=== PATIENT | male | born 1985 | race Caucasian/White ===

== ENCOUNTER 2017-08-05 12:27 | Day surgery (SDC) | payer OTHER ==
[~2017-08-05] VITALS: Ht 180.3 cm; Wt 123.8 kg
--- NOTE | 2017-08-05 12:42 | ER Report ---
History and Physical Time Seen By MD: 12:41 Hx. of Stated Complaint: pt reports gi symptoms for 1 month. pt reports pain in umbilical area HPI/ROS CHIEF COMPLAINT: Abdominal pain HISTORY OF PRESENT ILLNESS: This is a 32-year-old male who presents to the emergency department for abdominal pain. Patient states that over the last month he's had intermittent abdominal pain then this morning when he woke up he had constant lower abdominal pain on both sides. Patient also states he's had some urinary difficult ease over the last several days as well, he states that he feels like he has to urinate but is unable to. Patient also states that he's had a few episodes where his urine was very dark in color but he doesn't appreciate any bright red blood. Patient denies diarrhea he states today he has had no bowel movement which is unusual for him. No fevers or chills, no chest pain or shortness of breath, no headaches or rashes. REVIEW OF SYSTEMS: Constitutional: No fever, no chills. Eyes: No discharge. ENT: No sore throat. Cardiovascular: No chest pain, no palpitations. Respiratory: No cough, no shortness of breath. Gastrointestinal: As above. Genitourinary: As above. Musculoskeletal: No back pain. Skin: No rashes. Neurological: No headache. Allergies: Coded Allergies: No Known Drug Allergies (Unverified , 08/05/17) Home Meds Reported Medications Hydrocodone Bit/Acetaminophen (NORCO 7.5-325 TABLET) 1 Each Tablet, 1 EACH PO Q4 -6H Y for PAIN, #30 08/05/17 Cephalexin (KEFLEX) 500 Mg Capsule, 500 MG PO QID, #40 CAP 08/05/17 Phenazopyridine Hcl (PHENAZOPYRIDINE HCL) 200 Mg Tablet, 200 MG PO TID Y for PAIN, #30 TAB 08/05/17 Ibuprofen (IBUPROFEN) 800 Mg Tablet, 1 TAB PO TID Y for PAIN, #50 TAB 08/05/17 Famotidine (PEPCID) 20 Mg Tablet, 20 MG PO BID, #20 TAB 08/05/17 Past Medical/Surgical History Patient has a past medical and surgical history of wears contacts, wisdom teeth extraction. Reviewed Nurses Notes: Yes Constitutional Vital Sign - Last 24 Hours 08/05/17 08/05/17 08/05/17 08/05/17 12:30 12:33 12:37 12:47 Temp 97.5 Pulse 71 68 74 Resp 16 B/P (MAP) 144/100 144/101 (115) Pulse Ox 95 94 95 O2 Delivery Room Air 08/05/17 08/05/17 08/05/17 08/05/17 13:30 14:00 14:30 15:00 B/P (MAP) 156/111 (126) 142/98 (113) 148/87 (107) 147/86 (106) 08/05/17 08/05/17 08/05/17 08/05/17 15:23 16:05 17:30 17:45 Temp 98.6 Pulse 68 65 106 90 Resp 16 12 20 12 B/P (MAP) 147/86 (106) 132/92 (105) Pulse Ox 93 94 93 O2 Delivery Room Air Nasal Cannula O2 Flow Rate 1.0 08/05/17 08/05/17 08/05/17 08/05/17 18:00 18:15 18:30 18:45 Temp 98.3 Pulse 92 88 83 100 Resp 16 16 16 12 B/P (MAP) 130/97 (108) Pulse Ox 92 94 95 O2 Delivery Nasal Cannula O2 Flow Rate 2.0 08/05/17 08/05/17 08/05/17 08/05/17 18:46 18:55 19:30 19:37 Temp 98.1 Pulse 97 97 103 89 Resp 12 12 12 16 B/P (MAP) 143/103 (116) 134/115 (121) 143/103 (116) 128/108 (115) O2 Delivery Nasal Cannula Nasal Cannula Nasal Cannula Nasal Cannula O2 Flow Rate 2.0 2.0 2.0 2.0 Intake and Output 08/05/17 08/05/17 08/06/17 15:00 23:00 07:00 Intake Total 2710 ml Output Total 150 ml Balance 2560 ml Physical Exam General Appearance: The patient is alert, has no immediate need for airway protection and no signs of toxicity. Eyes: Pupils equal and round no pallor or injection. ENT, Mouth: Mucous membranes are moist. Respiratory: There are no retractions, lungs are clear to auscultation. Cardiovascular: Regular rate and rhythm, no murmurs, clicks or rubs. Gastrointestinal: Abdomen is moderately firm and tender to bilateral lower quadrants, no masses, absent bowel sounds in the bilateral lower quadrants and the left upper quadrant and hypoactive to the right upper quadrant. Genitourinary: Very faint cremasteric reflex. When the patient is coughing and bearing on I can feel something in the left inguinal canal. No appreciable prostate hypertrophy. Neurological: Alert and oriented 4. Moving all extremities. Following all commands. No focal neuro deficits. Skin: Warm and dry, no rashes. Musculoskeletal: Neck is supple non tender. Extremities are nontender, nonswollen and have full range of motion. DIFFERENTIAL DIAGNOSIS: After history and physical exam differential diagnosis was considered for abdominal pain including but not limited to appendicitis, cholecystitis, gastritis and urinary tract infection.urinary retention including but not limited to medication side effect, neurologic causes, outflow obstruction including prostatic hypertrophy, and blood. Medical Decision Making Data Points Result Diagram: 08/05/17 1303 08/05/17 1303 Laboratory Hematology Test 08/05/17 12:30 08/05/17 13:03 Urine Color Yellow Urine Clarity Cloudy Urine pH 5.0 pH (4.8-9.5) Urine Specific [place] 1.025 Urine Protein 30 mg/dL (NEGATIVE) Urine Glucose (UA) Negative mg/dL (NEGATIVE) Urine Ketones Negative mg/dL (NEGATIVE) Urine Blood Large (NEGATIVE) Urine Nitrite Negative (NEGATIVE) Urine Bilirubin Negative (NEGATIVE) Urine Urobilinogen 2.0 mg/dL (0.2-1.9) Urine Leukocyte Esterase Negative (NEGATIVE) Urine RBC 551 /HPF (0-2/HPF) Urine WBC 10 /HPF (0-5/HPF) Urine Squamous Epithelial Cells None /LPF (</=FEW) Urine Calcium Oxalate Crystals Many /HPF (NONE) Urine Bacteria Negative /HPF (NONE-FEW) Urine Mucus Few /HPF (NONE-FEW) Urine Yeast (Budding) Few /HPF Red Blood Count 5.85 M/uL (4.00-5.60) Mean Corpuscular Volume 83.5 fL (80.0-96.0) Mean Corpuscular Hemoglobin 28.4 pg (26.0-33.0) Mean Corpuscular Hemoglobin Concent 34.0 g/dL (32.0-36.0) Red Cell Distribution Width 13.7 % (11.5-14.5) Mean Platelet Volume 8.0 fL (7.2-11.1) Neutrophils (%) (Auto) 74.6 % (39.4-72.5) Lymphocytes (%) (Auto) 13.2 % (17.6-49.6) Monocytes (%) (Auto) 7.9 % (4.1-12.4) Eosinophils (%) (Auto) 3.0 % (0.4-6.7) Basophils (%) (Auto) 1.3 % (0.3-1.4) Nucleated RBC Relative Count (auto) 0.0 /100WBC Neutrophils # (Auto) 6.5 K/uL (2.0-7.4) Lymphocytes # (Auto) 1.1 K/uL (1.3-3.6) Monocytes # (Auto) 0.7 K/uL (0.3-1.0) Eosinophils # (Auto) 0.3 K/uL (0.0-0.5) Basophils # (Auto) 0.1 K/uL (0.0-0.1) Nucleated RBC Absolute Count (auto) 0.00 K/uL Sodium Level 137 mmol/L (137-145) Potassium Level 3.8 mmol/L (3.5-5.0) Chloride Level 99 mmol/L (98-107) Carbon Dioxide Level 28 mmol/L (22-30) Blood Urea Nitrogen 11 mg/dl (9-21) Creatinine 1.20 mg/dl (0.66-1.25) Glomerular Filtration Rate Calc > 60.0 Random Glucose 96 mg/dl (75-110) Calcium Level 9.1 mg/dl (8.4-10.2) Total Bilirubin 0.5 mg/dl (0.2-1.3) Aspartate Amino Transf (AST/SGOT) 36 U/L (0-35) Alanine Aminotransferase (ALT/SGPT) 74 U/L (0-56) Alkaline Phosphatase 90 U/L (0-126) Total Protein 8.1 gm/dl (6.3-8.2) Albumin 4.4 g/dl (3.5-5.0) Chemistry Test 08/05/17 12:30 08/05/17 13:03 Urine Color Yellow Urine Clarity Cloudy Urine pH 5.0 pH (4.8-9.5) Urine Specific [place] 1.025 Urine Protein 30 mg/dL (NEGATIVE) Urine Glucose (UA) Negative mg/dL (NEGATIVE) Urine Ketones Negative mg/dL (NEGATIVE) Urine Blood Large (NEGATIVE) Urine Nitrite Negative (NEGATIVE) Urine Bilirubin Negative (NEGATIVE) Urine Urobilinogen 2.0 mg/dL (0.2-1.9) Urine Leukocyte Esterase Negative (NEGATIVE) Urine RBC 551 /HPF (0-2/HPF) Urine WBC 10 /HPF (0-5/HPF) Urine Squamous Epithelial Cells None /LPF (</=FEW) Urine Calcium Oxalate Crystals Many /HPF (NONE) Urine Bacteria Negative /HPF (NONE-FEW) Urine Mucus Few /HPF (NONE-FEW) Urine Yeast (Budding) Few /HPF White Blood Count 8.7 k/uL (4.5-11.0) Red Blood Count 5.85 M/uL (4.00-5.60) Hemoglobin 16.6 g/dL (14.0-18.0) Hematocrit 48.9 % (42.0-52.0) Mean Corpuscular Volume 83.5 fL (80.0-96.0) Mean Corpuscular Hemoglobin 28.4 pg (26.0-33.0) Mean Corpuscular Hemoglobin Concent 34.0 g/dL (32.0-36.0) Red Cell Distribution Width 13.7 % (11.5-14.5) Platelet Count 274 K/uL (150-450) Mean Platelet Volume 8.0 fL (7.2-11.1) Neutrophils (%) (Auto) 74.6 % (39.4-72.5) Lymphocytes (%) (Auto) 13.2 % (17.6-49.6) Monocytes (%) (Auto) 7.9 % (4.1-12.4) Eosinophils (%) (Auto) 3.0 % (0.4-6.7) Basophils (%) (Auto) 1.3 % (0.3-1.4) Nucleated RBC Relative Count (auto) 0.0 /100WBC Neutrophils # (Auto) 6.5 K/uL (2.0-7.4) Lymphocytes # (Auto) 1.1 K/uL (1.3-3.6) Monocytes # (Auto) 0.7 K/uL (0.3-1.0) Eosinophils # (Auto) 0.3 K/uL (0.0-0.5) Basophils # (Auto) 0.1 K/uL (0.0-0.1) Nucleated RBC Absolute Count (auto) 0.00 K/uL Glomerular Filtration Rate Calc > 60.0 Calcium Level 9.1 mg/dl (8.4-10.2) Total Bilirubin 0.5 mg/dl (0.2-1.3) Aspartate Amino Transf (AST/SGOT) 36 U/L (0-35) Alanine Aminotransferase (ALT/SGPT) 74 U/L (0-56) Alkaline Phosphatase 90 U/L (0-126) Total Protein 8.1 gm/dl (6.3-8.2) Albumin 4.4 g/dl (3.5-5.0) Urinalysis Test 08/05/17 12:30 Urine Color Yellow Urine Clarity Cloudy Urine pH 5.0 pH (4.8-9.5) Urine Specific [place] 1.025 Urine Protein 30 mg/dL (NEGATIVE) Urine Glucose (UA) Negative mg/dL (NEGATIVE) Urine Ketones Negative mg/dL (NEGATIVE) Urine Blood Large (NEGATIVE) Urine Nitrite Negative (NEGATIVE) Urine Bilirubin Negative (NEGATIVE) Urine Urobilinogen 2.0 mg/dL (0.2-1.9) Urine Leukocyte Esterase Negative (NEGATIVE) Urine RBC 551 /HPF (0-2/HPF) Urine WBC 10 /HPF (0-5/HPF) Urine Squamous Epithelial Cells None /LPF (</=FEW) Urine Calcium Oxalate Crystals Many /HPF (NONE) Urine Bacteria Negative /HPF (NONE-FEW) Urine Mucus Few /HPF (NONE-FEW) Urine Yeast (Budding) Few /HPF EKG/Imaging Imaging ABDOMEN/PELVIS WITH CONTRAST Additional pertinent History: Bilateral lower quadrant pain TECHNIQUE: Spiral scan was through the abdomen and pelvis during injection of nonionic iodinated intravenous contrast. Contrast: 75 mL of IV Isovue-370. One of the following dose optimization techniques was utilized in the performance of this exam: Automated exposure control; adjustment of the mA and/ or kV according to the patient's size; or use of an iterative reconstruction technique. Specific details can be referenced in the facility's radiology CT exam operational policy. COMPARISON STUDIES: none. FINDINGS: Liver / biliary: No liver pathology. Gallbladder is normal Pancreas: negative Spleen: negative Adrenal glands: negative Kidneys / retroperitoneum: Edematous left kidney with a dilated collecting system and ureter down to a obstructing 4x5 mm stone in the distal left ureter ( image 141 series 2) Pelvic structures: Prostate is normal. Bladder is unremarkable Bowel / peritoneum / mesenteries: negative Vessels: negative Musculoskeletal / Body wall: Small bilateral inguinal herniations of peritoneal fat. Lymph node assessment: negative Lower chest: negative IMPRESSION: 1. 4 x 5 mm obstructing distal left ureteral stone approximately 3 cm from the vesicoureteral junction. Report Dictated By: Clarke Rodriguez MD at 08/05/2017 2:16 PM Report E-Signed By: Clarke Rodriguez MD at 08/05/2017 2:22 PM WSN:[id number] ED Course/Re-evaluation Clinical Indication for ER IV: IV Access ED Course The patient was admitted to a room. A history physical were obtained. Differential diagnoses were considered. IV was started. 4 mg IV Zofran, 2 mg IV morphine 2. A CBC, CMP were obtained. Lab studies unremarkable. A UA was obtained showing large blood,Urine [place], calcium oxalate crystals, 10 urine wbc' s, the urine was sent for culture. A CT of the abdomen and pelvis showing a left -sided obstructive kidney stone with dilation of the collecting duct. I did review these results with the patient, there was an incidental finding on the CT as well, bilateral inguinal herniation of peritoneal fat. I did contact Dr. Aquino as noted below, Dr. Aquino has agreed to take the patient to surgery to remove the stone. Patient is in agreement with this plan of care. Patient had no other questions or concerns at this time and was admitted to the outpatient surgery center. 08/05/2017 2:52:[address] Aquino has accepted the patient into his services and will be admitted to the hospital and taken to surgery the patient is in agreement with this plan of care. 08/05/2017 3:00:[address] Aquino again and Dr. Aquino said he will go ahead and take the patient to surgery around 4 PM today he shouldn't will be admitted to the outpatient surgery center. The patient has been nothing by mouth since 9 AM this morning. 08/05/2017 3:16:[address] Laird regarding the incidental finding of small bilateral inguinal hernias of peritoneal fat and Dr. Powell suggested having the patient follow-up in his office after he has surgery with Dr. Aquino. I did update the patient's gave him Dr. Laird's information and instructed him to call. Decision to Disposition Date: Aug 05, 2017 Decision to Disposition Time: 14:58 Depart Departure Latest Vital Signs Vital Signs Date Time Temp Pulse Resp B/P (MAP) Pulse Ox O2 Delivery O2 Flow Rate FiO2 08/05/17 19:37 89 16 128/108 (115) Nasal Cannula 2.0 08/05/17 18:46 98.1 08/05/17 18:30 95 Impression: Primary Impression: Ureteral obstruction, left Condition: Improved Disposition: ADMIT FROM ER TO OR BLAYNE HEATH Aug 05, 2017 12:42
[2017-08-05 13:20] LABS: PLATELET COUNT, AUTOMATED 274 K/uL (150-450)
[2017-08-05] MEDS ORDERED: IOPAMIDOL 76% 75 ML INFUS BTL 75 ML ONE (13:27)
[2017-08-05] MEDS ORDERED: MORPHINE 2 MG/ML SYR IVP ONE ×2 (14:05→14:55)
[2017-08-05] MEDS ORDERED: ONDANSETRON 4 MG/2 ML VIAL IVP ONE (14:05)
--- NOTE | 2017-08-05 14:27 | RADIOLOGY IMAGING REPORT ---
FACILITY: [facility] PATIENT NAME: Chyna Hobbs : 1985 MR: [id number] V: [id number] EXAM DATE: ORDERING PHYSICIAN: BLAYNE HEATH TECHNOLOGIST: Location: Patient: Chyna Hobbs : 1985 Visit/Account:[id number] Date of Sevice: 08/05/2017 ABDOMEN/PELVIS WITH CONTRAST Additional pertinent History: Bilateral lower quadrant pain TECHNIQUE: Spiral scan was through the abdomen and pelvis during injection of nonionic iodinated in travenous contrast. Contrast: 75 mL of IV Isovue-370. One of the following dose optimization techniques was utilized in the performance of this exam: Autom ated exposure control; adjustment of the mA and/or kV according to the patient's size; or use of an i terative reconstruction technique. Specific details can be referenced in the facility's radiology C T exam operational policy. COMPARISON STUDIES: none. FINDINGS: Liver / biliary: No liver pathology. Gallbladder is normal Pancreas: negative Spleen: negative Adrenal glands: negative Kidneys / retroperitoneum: Edematous left kidney with a dilated collecting system and ureter down to a obstructing 4x5 mm stone in the distal left ureter (image 141 series 2) Pelvic structures: Prostate is normal. Bladder is unremarkable Bowel / peritoneum / mesenteries: negative Vessels: negative Musculoskeletal / Body wall: Small bilateral inguinal herniations of peritoneal fat. Lymph node assessment: negative Lower chest: negative IMPRESSION: 1. 4 x 5 mm obstructing distal left ureteral stone approximately 3 cm from the vesicoureteral junctio n. Report Dictated By: Clarke Rodriguez MD at 08/05/2017 2:16 PM Report E-Signed By: Clarke Rodriguez MD at 08/05/2017 2:22 PM WSN:[id number]
[2017-08-05] MEDS ORDERED: IOPAMIDOL-200 50 ML VIAL IS ONE (15:29)
[2017-08-05] MEDS ORDERED: NORMOSOL R SOLN(*) 1000 ML BAG 1,000 ML IV PRN (15:40)
[2017-08-05] MEDS ORDERED: FAMOTIDINE 20 MG/50 ML PREMIX IVPB ONE (15:40)
[2017-08-05] MEDS ORDERED: MIDAZOLAM 2 MG/2 ML VIAL IVP PRN (15:40)
[2017-08-05] MEDS ORDERED: SUCCINYLCHOL CHL 100MG/5ML SYR IVP ONE (16:00)
[2017-08-05 16:05] VITALS: BP 132/92
[2017-08-05] MEDS ORDERED: cefTRIAXone(*) 1 GM VIAL 1 GM in NS(*) 0.9% 100 ML ADDVANT BAG 100 ML IVPB ONE (16:10)
[2017-08-05] MEDS ORDERED: WATER FOR IRRIG,STERILE 3000ML IR ONE (16:20)
[2017-08-05] MEDS ORDERED: PROPOFOL EMUL(*) 10MG/ML 20 ML 40 ML ONE (16:30)
[2017-08-05] MEDS ORDERED: ONDANSETRON 4 MG/2 ML VIAL ONE (16:30)
[2017-08-05] MEDS ORDERED: LIDOCAINE MPF 1% 5 ML VIAL ONE (16:30)
[2017-08-05] MEDS ORDERED: DEXAMETHASONE SOD PHOS 10MG/ML ONE (16:30)
[2017-08-05] MEDS ORDERED: ROCURONIUM BROM 10 MG/ML 10 ML ONE (16:46)
[2017-08-05] MEDS ORDERED: SUGAMMADEX SOD 500 MG/5 ML SDV ONE (17:03)
--- NOTE | 2017-08-05 17:28 | RADIOLOGY IMAGING REPORT ---
FACILITY: [facility] PATIENT NAME: Chyna Hobbs : 1985 MR: [id number] V: [id number] EXAM DATE: ORDERING PHYSICIAN: ROBIN PINTO TECHNOLOGIST: Location: [facility] [place] Patient: Chyna Hobbs : 1985 Visit/Account:[id number] Date of Sevice: 08/05/2017 Technique: C-ARM FLUORO 1 HR HISTORY: HEMATURIA Comparison studies: None FINDINGS: 2 operative fluoroscopic radiographs were obtained of the pelvis and left hemiabdomen. Cont rast is noted within the urinary bladder and left-sided collecting system. Present is incomplete visu alization of a left-sided ureteral stent. Fluoroscopy: 0.04 minutes IMPRESSION: 1. Intraoperative fluoroscopic radiographs as described above. Please see operative report for furth er details. Report Dictated By: Brady Bustos DO at 08/05/2017 5:24 PM Report E-Signed By: Brady Bustos DO at 08/05/2017 5:26 PM WSN:[id number]
[2017-08-05] MEDS ORDERED: FAMO20TA28 PO (17:42)
[2017-08-05] MEDS ORDERED: IBUP800T37 PO (17:43)
[2017-08-05] MEDS ORDERED: PHEN200T32 PO (17:43)
[2017-08-05] MEDS ORDERED: CEPH-13 PO (17:46)
[2017-08-05] MEDS ORDERED: HYDR-4308 PO (17:48)
[2017-08-05 18:45] VITALS: BP 130/97
[2017-08-05 18:46] VITALS: BP 143/103
[2017-08-05 18:55] VITALS: BP 134/115
[2017-08-05 19:30] VITALS: BP 143/103
[2017-08-05 19:37] VITALS: BP 128/108
--- NOTE | 2017-08-05 22:19 | OPERATIVE REPORT 1 ---
EVENT DATE: August 05, 2017 SURGEON: Rodolfo Aquino MD ANESTHESIOLOGIST: Rodolfo Turk MD ANESTHESIA: General. PREOPERATIVE DIAGNOSIS Left ureterolithiasis with associated ureterorenal colic, nausea, and vomiting. POSTOPERATIVE DIAGNOSIS Left ureterolithiasis with associated ureterorenal colic, nausea, and vomiting. PROCEDURES PERFORMED 1. Cystourethroscopy. 2. Placement of left ureteral stent. 3. Manipulation of left ureteral stone. DESCRIPTION OF PROCEDURE Under general anesthetic, the patient was prepped and draped in the extended lithotomy position. The 21 panendoscope was admitted through the urethra to the bladder. The urethra was normal. The prostate showed trilobar hyperplasia with obstruction. The bladder showed 3+ trabeculation. Trigone and ureteral orifices were normal. No bloody efflux from either orifice. A 10 cone-tipped catheter was passed up the left ureter approximately 3 to 4 cm , and the obstructive stone was encountered and was freed from its attachments. The access catheter was placed, a guidewire 0.038, and then the 6-Icelandic x 26 cm Percuflex Plus. There was a hydronephrotic drip of bloody, christy urine. X-ray confirmed satisfactory position in the left kidney. The bladder was drained. The patient tolerated the procedure satisfactorily and returned to the recovery room in satisfactory condition. This is a 32-year-old white male complaining of acute left ureterorenal colic secondary to a left ureteral stone measured at approximately 4 to 5 mm, but clinically larger in my opinion. Options were discussed with the patient pretreatment as well as his mother-in- law who was present. The patient opted for further evaluation and therapy. See operative note for details. Plan followup this coming Friday with stent removal, ureterorenoscopy, and probable laser lithotripsy and extraction of the left renal stone. The patient will be discharged home on Keflex, Pepcid, Motrin, Pyridium, and [place] therapy in addition to his usual medication. The patient is to strain all of his urine. He is sent home with strainers. He was given a copy of instructions and expectations from the indwelling left ureteral stent as to urgency and frequency of urination, tenesmus, and bladder cramping. The patient seemed to understand. [facility]
== END 2017-08-05 18:45 | disposition home or self-care (01) ==
LOC: ER 12:34 → OR 15:15 → ER 15:24 → OR 18:45
DX: N13.5 Crossing vessel and stricture of ureter without hydronephrosis (principal)
CPT/HCPCS: 52330; 52332; 74177; 76000; 81001; 85025; 87088; 96374; 96375; 96376; 99285; C1758; C1894; C2617; J0330; J0696; J1100; J2001; J2250; J2270; J2405; J2704; J3490; J7050; Q9966; Q9967; 82040; 82247; 82310; 82374; 82435; 82565; 82947; 84075; 84132; 84155; 84295; 84450; 84460; 84520

== ENCOUNTER 2017-08-11 03:21 | Day surgery (SDC) | payer OTHER ==
[~2017-08-11] VITALS: Ht 182.9 cm; Wt 124.7 kg
[~2017-08-11 03:21] MED LIST: CEPH-13 PO; FAMO20TA28 PO; HYDR-4308 PO; IBUP800T37 PO; PHEN200T32 PO
[2017-08-11] MEDS ORDERED: ceFAZolin(*) 2GM/D5W 50ML 50 ML IVPB ONE ×2 (05:30→08:45)
[2017-08-11 08:22] VITALS: BP 132/101
[2017-08-11] MEDS ORDERED: LIDOCAINE/SOD BICARB 8.4% SYR ID ONE (08:45)
[2017-08-11] MEDS ORDERED: MIDAZOLAM 2 MG/2 ML VIAL IVP PRN (08:45)
[2017-08-11] MEDS ORDERED: NORMOSOL R SOLN(*) 1000 ML BAG 1,000 ML IV PRN (08:45)
[2017-08-11] MEDS ORDERED: DEXAMETHASONE SOD PHOS 10MG/ML ONE (08:57)
[2017-08-11] MEDS ORDERED: ONDANSETRON 4 MG/2 ML VIAL ONE (08:57)
[2017-08-11] MEDS ORDERED: LIDOCAINE MPF 1% 5 ML VIAL ONE (08:57)
[2017-08-11] MEDS ORDERED: PROPOFOL EMUL(*) 10MG/ML 20 ML 40 ML ONE (08:57)
[2017-08-11] MEDS ORDERED: fentaNYL CITR 250 MCG/5 ML AMP ONE (08:58)
[2017-08-11] MEDS ORDERED: KETOROLAC 30 MG/ML VIAL ONE (10:00)
[2017-08-11 11:05] VITALS: BP 139/97
[2017-08-11 11:17] VITALS: BP 122/87
[2017-08-11 11:18] VITALS: BP 116/86
--- NOTE | 2017-08-11 11:24 | RADIOLOGY IMAGING REPORT ---
FACILITY: [facility] [place] PATIENT NAME: Chyna Hobbs : 1985 MR: [id number] V: [id number] EXAM DATE: ORDERING PHYSICIAN: ROBIN PINTO TECHNOLOGIST: Location: [facility] Patient: Chyna Hobbs : 1985 Visit/Account:[id number] Date of Sevice: 08/11/2017 Exam type: C-ARM FLUORO 1 HR History: STONES Comparison: August 05, 2017. Findings: A single intraoperative fluoroscopic view of the abdomen and pelvis was submitted. The total fluoros copy time was two seconds. The fluoroscopy dose was 1.43 mGray. There is a left ureteral stent in place. No calcifications are seen along the course of the stent IMPRESSION: 1. As above Report Dictated By: Jonelle Baca MD at 08/11/2017 11:17 AM Report E-Signed By: Jonelle Baca MD at 08/11/2017 11:19 AM WSN:[email or web address]
--- NOTE | 2017-08-11 11:56 | OPERATIVE REPORT 1 ---
EVENT DATE: August 11, 2017 SURGEON: Rodolfo Aquino MD ANESTHESIOLOGIST: Eddie James MD ANESTHESIA: General PREOPERATIVE DIAGNOSES 1. Left ureterolithiasis. 2. Status postop left ureteral stent placement. POSTOPERATIVE DIAGNOSIS 1. Left ureterolithiasis. 2. Status postop left ureteral stent placement. PROCEDURE PERFORMED 1. Cystourethroscopy. 2. Removal of left ureteral stent. 3. Placement of left ureteral guide wire, 0.038 flexible. 4. Left ureterorenoscopy. 5. Fragmentation of left ureteral stone. 6. Extraction of four stones from the left ureter. DESCRIPTION OF PROCEDURE Under general anesthetic, the patient was prepped and draped in the extended lithotomy position. The 21 panendoscope admitted through the urethra into the bladder. No stones were visible in the bladder. The left ureteral stent was removed from the left ureter. The 0.038 guide wire, flexible tip, was passed up the left collecting system. The ureterorenoscope was introduced and passed up the left ureter. The stone was visualized. The stone fragmented over the tip of the scope into four pieces. The stones were extracted x 4 from the left ureter. Ureterorenoscopy, ascending and descending, revealed no other urolithiasis. The ureterorenoscope was removed. The ureteral guidewire was removed. A repeat cystourethroscopy showed no other stones in the bladder. The bladder was drained. The cystoscope was removed. The patient tolerated the procedures satisfactorily and returned to the recovery room in satisfactory condition. INDICATION FOR PROCEDURE This is a 32-year-old white male complaining of left ureterolithiasis approximately one week ago. He had left ureteral stent placed at that time. Patient was in followup for repeat evaluation and therapy. That has been accomplished. See operative note for details. DISCHARGE INSTRUCTIONS Patient will be ready for discharge home when alert and functional. Patient is to force fluids, 12 glasses of water per day. Activities are as tolerated. Copy of instructions were given to the patient. He is to continue his usual medications. Patient was given a dose of Toradol in the recovery room. Patient to finish his Keflex, Pepcid, [place] therapy as needed. Plan followup on September 23, 2017 for his stone analysis. [facility]
--- NOTE | 2017-08-11 12:09 | RADIOLOGY IMAGING REPORT ---
FACILITY: [facility] PATIENT NAME: Chyna Hobbs : 1985 MR: [id number] V: [id number] EXAM DATE: ORDERING PHYSICIAN: ROBIN PINTO TECHNOLOGIST: Location: [facility] Patient: Chyna Hobbs : 1985 Visit/Account:[id number] Date of Sevice: 08/11/2017 Exam type: TOMOGRAPHY AND KUB W/CASSETTE History: ESWL Comparison: CT August 05, 2017. Findings: There is a left ureteral stent in place. There is an approximate 2 to 3 mm calcification projecting immediately adjacent to the distal portion of the left ureteral stent in the mid pelvis. No calcific ations are seen projecting over the renal shadows. IMPRESSION: 1. There is an approximate 2 to 3 mm calcification projecting immediately adjacent to the distal por tion of the left ureteral stent in the mid pelvis. This could be related to the previously noted dis pilar left ureteral calculus Report Dictated By: Jonelle Baca MD at 08/11/2017 9:57 AM Report E-Signed By: Jonelle Baca MD at 08/11/2017 12:03 PM WSN:[id number]
== END 2017-08-11 11:05 | disposition home or self-care (01) ==
LOC: OR 03:21
DX: N20.1 Calculus of ureter (principal)
CPT/HCPCS: 52352; 74018; 76000; 76100; 82365; 88300; C1769; J1100; J1885; J2001; J2250; J2405; J2704; J3010; J0690

== ENCOUNTER → 2017-10-29 | Outpatient (CLI) | payer OTHER ==
--- NOTE | 2017-10-29 16:13 | RADIOLOGY IMAGING REPORT ---
FACILITY: [facility] - [place] PATIENT NAME: Chyna Hobbs : 1985 MR: [id number] V: [id number] EXAM DATE: ORDERING PHYSICIAN: ROBIN PINTO TECHNOLOGIST: Location: [facility] [place] Patient: Chyna Hobbs : 1985 Visit/Account:[id number] Date of Sevice: 10/29/2017 ABDOMEN/PELVIS W/O CONTRAST Provided history: Flank pain. Previous history of stone disease. Additional pertinent history: none TECHNIQUE: Spiral scan was obtained from the lower chest through the symphysis without intravenous co ntrast. Source images were reformatted in the coronal and sagittal planes. Additional series performed today: none One of the following dose optimization techniques was utilized in the performance of this exam: Autom ated exposure control; adjustment of the mA and/or kV according to the patient's size; or use of an i terative reconstruction technique. Specific details can be referenced in the facility's radiology CT exam operational policy. COMPARISON STUDIES: CT 08/05/17 FINDINGS: Lower chest: Nonspecific patchy groundglass attenuation, likely benign and inflammatory in origin. Liver/biliary: Negative Pancreas: Negative Spleen: Negative Adrenal glands: Negative Kidneys / ureters / bladder / genitourinary / retroperitoneum: No stone disease or hydronephrosis cur rently. A stone in the distal left ureter has passed in the interim. Currently no stones in the cours e of the ureters. Bowel / peritoneum / mesenteries: Negative. Normal appendix. Vessels: negative Lymph nodes: negative Body wall: negative Bones: Stable sclerotic foci in the proximal femora very likely benign enostosis. IMPRESSION: Negative assessment. No evidence of renal stone disease or hydronephrosis. Interim passage of a small stones from the distal left ureter. Report Dictated By: Eloy Cherry MD at 10/29/2017 4:05 PM Report E-Signed By: Eloy Cherry MD at 10/29/2017 4:10 PM WSN:[id number]
== END ==
LOC: CT 15:34
DX: R31.0 Gross hematuria (principal); N20.0 Calculus of kidney
CPT/HCPCS: 74176

== ENCOUNTER 2018-09-02 11:01 | Emergency (ER) | payer OTHER ==
[~2018-09-02 11:01] MED LIST changes: -HYDR-4308 PO; +HYDR-654 PO
--- NOTE | 2018-09-02 11:14 | ER Report ---
History and Physical Time Seen By MD: 11:13 Hx. of Stated Complaint: pt at work was grabbing something from a high shelf, landed on his elbow. states he cant extend his left arm HPI/ROS CHIEF COMPLAINT: Left arm pain HISTORY OF PRESENT ILLNESS: Patient is a 33-year-old male who was lifting a heavy patio furniture set while at work and felt a tear in his left bicep area and his elbow felt a pop heard a pop came the emergency department did not fall no additional complaints noted REVIEW OF SYSTEMS: Respiratory: No cough, no dyspnea. Cardiovascular: No chest pain, no palpitations. Gastrointestinal: No vomiting, no abdominal pain. Musculoskeletal: Left elbow on bicep pain Remainder of the 14 system rev: Yes Allergies: Coded Allergies: No Known Drug Allergies (Unverified , 08/05/17) Home Meds Reported Medications Hydrocodone Bit/Acetaminophen (NORCO 7.5-325 TABLET) 1 Each Tablet, 1 EACH PO Q4-6H PRN for PAIN, #20 08/05/17 Cephalexin (KEFLEX) 500 Mg Capsule, 500 MG PO QID, #20 CAP 08/05/17 Phenazopyridine Hcl (PHENAZOPYRIDINE HCL) 200 Mg Tablet, 200 MG PO TID PRN for PAIN, #30 TAB 08/05/17 Ibuprofen (IBUPROFEN) 800 Mg Tablet, 1 TAB PO TID PRN for PAIN, #50 TAB 08/05/17 Famotidine (PEPCID) 20 Mg Tablet, 20 MG PO BID, #20 TAB 08/05/17 Reviewed Nurses Notes: Yes Old Medical Records Reviewed: Yes Hx Smoking: No Hx Alcohol Use: No Constitutional Vital Sign - Last 24 Hours 09/02/18 11:06 Temp 97.8 Pulse 79 Resp 18 B/P (MAP) 125/102 Pulse Ox 90 O2 Delivery Room Air Physical Exam General appearance: Alert no distress. Respiratory: Chest is non tender, lungs are clear to auscultation. Cardiac: Regular rate and rhythm [ ] Left arm examination patient is an obvious defect of the left bicep unable to flex at the elbow joint and with rotation of the distal extremity obvious defect noted consistent with a bicipital tear are intact DIFFERENTIAL DIAGNOSIS: After history and physical exam differential diagnosis was considered for tear of the biceps Medical Decision Making ED Course/Re-evaluation ED Course This 33-year-old male comes mers per with right bicipital pain examinations consistent with a bicipital tear x-ray shows no fractures dislocation or subluxation patient will be put in a long-arm splint and follow-up with orthopedics Decision to Disposition Date: Sep 02, 2018 Decision to Disposition Time: 12:04 Depart Departure Latest Vital Signs Vital Signs Date Time Temp Pulse Resp B/P (MAP) Pulse Ox O2 Delivery O2 Flow Rate FiO2 09/02/18 11:06 97.8 79 18 125/102 90 Room Air Impression: Primary Impression: Biceps tendon rupture Condition: Improved Disposition: HOME OR SELF-CARE Referrals: PATRICIA PADILLA MD 5 Days Patient Instructions: Repairs of the Biceps and Triceps Tendons (DC) LIZZY MCCABE MD Sep 02, 2018 11:14
[2018-09-02 12:00] VITALS: BP 108/76
--- NOTE | 2018-09-02 12:35 | RADIOLOGY IMAGING REPORT ---
FACILITY: [facility] PATIENT NAME: Chyna Hobbs : 1985 MR: [id number] V: [id number] EXAM DATE: ORDERING PHYSICIAN: LIZZY MCCABE TECHNOLOGIST: Location: Patient: Chyna Hobbs : 1985 Visit/Account:[id number] Date of Sevice: 09/02/2018 ELBOW 3 VIEW LEFT HISTORY: bicep tear Three-view examination of the left elbow. FINDINGS: Study demonstrates no acute bony pathology. No fractures identified. No obvious evidence of bony av ulsion from the insertion of the biceps insertion at the radial tuberosity. There is no joint effusi on. Soft tissues are unremarkable other than retraction of the biceps muscle. IMPRESSION: 1. No acute bony pathology. Specifically,, no evidence of an avulsion from the radial tuberosity. Report Dictated By: Clarke Rodriguez MD at 09/02/2018 12:25 PM Report E-Signed By: Clarke Rodriguez MD at 09/02/2018 12:32 PM WSN:[email or web address]
== END 2018-09-02 12:35 | disposition home or self-care (01) ==
LOC: ER 11:09
DX: S46.211A Strain of muscle, fascia and tendon of other parts of biceps, right arm, initial encounter (principal)
CPT/HCPCS: 99283; A4565

== ENCOUNTER → 2018-09-04 | Outpatient (CLI) | payer OTHER ==
--- NOTE | 2018-09-04 18:18 | RADIOLOGY IMAGING REPORT ---
FACILITY: [facility] - [place] PATIENT NAME: Chyna Hobbs : 1985 MR: [id number] V: [id number] EXAM DATE: ORDERING PHYSICIAN: OLAF DEMARCO TECHNOLOGIST: Location: [facility] - [place] Patient: Chyna Hobbs : 1985 Visit/Account:[id number] Date of Sevice: 09/04/2018 MR ELBOW LT W/O CON HISTORY: Injury. Pain. Evaluate biceps tendon. COMPARISON: X-ray 09/02/2018 TECHNIQUE: Multiplanar/multisequence was obtained through the left elbow without contrast. CONTRAST: None FINDINGS: Bone marrow: Normal Medial joint space: Normal without osteochondral lesion Lateral joint space: Normal without osteochondral lesion Ulnar collateral ligament: Normal Lateral collateral ligament: Normal Joint effusion: None Common flexor tendon: Normal Common extensor tendon: Normal Biceps tendon: Complete retracted tear of the biceps tendon with retraction to the elbow joint. Exten sive surrounding edema and fluid. Triceps tendon: Normal Ulnar nerve: Normal Other findings: None significant IMPRESSION: 1. Complete retracted tear of the biceps tendon with retraction to the elbow joint with extensive gi rounding edema and fluid. Report Dictated By: Hemant Kathleen MD at 09/04/2018 6:11 PM Report E-Signed By: Hemant Kathleen MD at 09/04/2018 6:15 PM WSN:[id number]
== END ==
LOC: MRI 12:13
PROVIDERS: ATTEND Physician Assistant
DX: S46.212A Strain of muscle, fascia and tendon of other parts of biceps, left arm, initial encounter (principal)